=== PATIENT | male | born 2000 ===

== ENCOUNTER → 2022-07-02 | Outpatient (RCR) | payer BC, OTHER | LOC: OT 06-06 13:27 | PROVIDERS: ATTEND Orthopaedic Surgery | DX: M25.531 Pain in right wrist (principal) ==

== ENCOUNTER 2022-07-04 07:33 | Outpatient (RCR) | payer OTHER | END 2022-07-30 | LOC: OT 07:33 | PROVIDERS: ATTEND Orthopaedic Surgery | DX: M25.531 Pain in right wrist (principal) ==